=== PATIENT | female | born 2000 | race Caucasian/White ===

== ENCOUNTER 2024-11-05 13:19 | Emergency (ER) | payer OTHER, SELFPAY ==
--- NOTE | ~2024-11-05 | US_ITS ---
Limited ABDOMINAL ULTRASOUND (Doppler ultrasound interrogation techniques used as needed for this exa m.) Ordering provider: Daniel Vazquez PA-C History: . RUQ epigastric pain . Comparison: None. FINDINGS: PANCREAS: Normal echotexture and size. PORTAL VEIN: Hepatopedal flow demonstrated. LIVER: Normal size and echotexture. No focal hepatic lesions or perihepatic fluid collections are araceli ntified. BILIARY DUCTS: No intra or extrahepatic biliary dilation. Common bile duct measures 3.9 mm in diamete r which is normal for patient's age. GALLBLADDER: Cholelithiasis. No sludge, gallbladder wall thickening or pericholecystic fluid. Gallbla dder wall thickness is 2 mm. Negative sonographic Tyler's sign. Inferior vena cava: Patent. Abdominal aorta: Patent. FREE FLUID: None visualized within the upper abdomen. IMPRESSION: Cholelithiasis. Otherwise, normal limited abdominal ultrasound. Reviewed, dictated and finalized at location A.
[2024-11-05 13:21] VITALS: BP 127/83; PULSE 98; RESP 20; TEMP 36.3; O2SAT 98
--- NOTE | 2024-11-05 13:43 | PC.NURSE ---
patient given urine cup and advised we need a urine sample.
[2024-11-05 13:45] LABS: Basophils Percent Auto 0.1 % (0.2-1.2); Eosinophils Absolute Auto 0.1 K/mm3 (0-0.3); Eosinophils Percent Auto 1.5 % (0-4.4); Hematocrit 47.1 % (37.0-47.0); Hemoglobin 15.6 g/dL (12.0-15.0); Immature Granulocyte Absolute 0.02 K/mm3 (0.00-0.031); Immature Granulocyte Percent A 0.2 % (0-0.5); Lymphocytes Absolute Auto 3.29 K/mm3 (0.9-3.2); Lymphocytes Percent Auto 36.3 % (18.3-44.2); Mean Corpuscular HGB Conc 33.1 g/dl (32-36); Mean Corpuscular Volume 90.6 fl (80-100); Mean Platelet Volume 9.1 fl (7.4-10.4); Monocytes Absolute Auto 0.5 K/mm3 (0.1-0.6); Monocytes Percent Auto 5.1 % (2.6-8.5); Neutrophils Absolute Auto 5.1 K/mm3 (1.3-6.7); Neutrophils Percent Auto 56.8 % (45.5-73.1); Platelet Count Result 355 k/mm3 (150-375); Red Cell Distribution Width 12.2 % (11.5-14.5); White Blood Count 9.1 K/mm3 (4.5-10.0)
[2024-11-05 13:56] LABS: Alanine Aminotransferase 21 U/L (6-35); Albumin Level 4.6 g/dL (3.5-5.1); Alkaline Phosphatase 79 U/L (38-126); Anion Gap 12 mmol/L (4-12); Aspartate Amino Transferase 35 U/L (14-36); Bilirubin,Total 0.5 mg/dL (0.2-1.3); Blood Urea Nitrogen 14 mg/dL (7-17); Calcium 9.4 mg/dL (8.4-10.2); Carbon Dioxide 22 mmol/L (22-30); Chloride 102 mmol/L (98-107); Estimated CRCL calculation 100 ml/min; Estimated Glomerular Filt Rate > 60; Glucose 101 mg/dL (65-110); Lipase 64 U/L (23-300); Potassium 3.7 mmol/L (3.4-5.0); Sodium 136 mmol/L (137-145)
[2024-11-05 14:11] LABS: BEDSIDEPREGUCG Negative (Negative)
[2024-11-05 14:29] LABS: Add Urine Microscopic? YES; Appearance Urine Clear (Clear); Bacteria Urine None Seen /hpf; Bilirubin Urine Negative (Negative); Blood Urine Trace (Negative); Color Urine Yellow (Yellow); Glucose Urine UA Negative (Negative); Ketones Urine Negative (Negative); Leukocyte Esterase Ur Negative LEU/UL (Negative); Nitrate Urine Negative (Negative); Non Pathogenic Casts 0-2; Protein Urine Negative (Negative); Specific Grav Ur 1.022 (1.001-1.035); Squamous Epithelial Cell Urine None Seen /hpf (Few); WBC Urine 0-5 /hpf (0-3)
[2024-11-05 15:17] VITALS: BP 122/74; PULSE 72; RESP 18; O2SAT 100
--- OUTSIDE RECORDS SUMMARY | 2024-11-05 15:26 | XMS_ITS | Continuity of Care Document ---
Author Organization [facility] Address [address] [place] [address] Phone Care Team Providers Care Engine Emission Technician Name Role Phone Marcelino VARGAS MD, Simón Unavailable Unavailabl e Procedures Procedure Date EYE EXAM & TREATMENT EYE EXAM & TREATMENT REFRACTION Advance Directives Directive Yes / No Effective Date File Name No Information Encounters Encounter Description Practice Location Reason(s) For Visit Diagnoses Date Provider Providers Copied on Encounter [facility], [address] [place] [address], [id number] tel:[phone] [facility] Astigmatism, unspecifiedOcul ar torticollis 9 Marcelino Gr. [facility], [address] [place] [address], [id number]. tel:[phone] [facility], [address] [place] [address], [id number] tel:[phone] [facility] Astigmatism, unspecifiedExop horia 7 Marcelino Gr. [facility], [address] [place] [address], [id number]. tel:[phone] Family History Family Member Type Diagnosis Age At Onset No Information Payers Payer name Insurance type Covered republican ID Authoriza tion(s) No Information Social History Type Description Quantity Date Captured Comments Sex Female Smoking Status No Information Chief Complaint And Reason For Visit No Information Reason For Referral Reason For Referral No Information History Of Present Illness Encounter Date Complaint History Of Prese nt Illness No Information Functional Status Date Functional Assessmen t No Information Instructions Date Instruction Additional Infor mation No Information Assessments Type Assessment Date No Information Patient Care Teams Name Effective Dates (start - stop) Status Members No Information
--- OUTSIDE RECORDS SUMMARY | 2024-11-05 15:26 | XMS_ITS | Clinical Summary ---
Author Organization [facility] Address [address] [place] [address] Phone Care Team Providers Care Jukebox Operator Name Role Phone Vipul Esquivel MD PhD Primary Care Provider Allergies No known active allergies Medications Misc Natural Products (GLUCOSAMINE CHONDROITIN ADV PO) Take by mouth. Activ e Naproxen Sodium (ALEVE PO) Take by mouth. Acti ve Pseudoephedrine- APAP-DM (DAYQUIL PO) Take by mouth. Activ e fluticasone (FLONASE) 50 MCG/ACT Suspension 1-2 Sprays by Nasal route daily. Use in each nostril as directed. 1 Bottle 9 Active Additional Information Patient not taking.Reported on 06/12/2021 acetaminophen (TYLENOL) 325 MG Tablet Take 325 mg by mouth every 4 hours as needed. Active albuterol 108 (90 Base) MCG/ACT Aerosol Solution INHALE 2 PUFFS EVERY 4 HOURS NEEDED FOR WHEEZING 8.5 g 2 2 Active ibuprofen (Advil) 200 MG Tablet Take 400 mg by mouth every 8 hours as needed. Active guaiFENesin (MUCINEX PO) Take by mouth. Ac tive Active Problems Problem Noted Date Diagnosed Date Constipation Immunizations Immunization Administration Dates Next Due Covid-19 Vaccine, Vector-nr, Rs-ad26, Pf, 0.5 Ml ([employer]/J&J) 10/03/2020 DTAP VACCINE 02/09/2007, 3,2001,07/06,2001 Diptheria, Pertussis, And Tetanus 2002,2001,2001,05/04 HIB Vaccine (PRP-T) 06/03/2002, 2,2001,05/04 Hepatitis A Vaccine 02/01/2013 Hepatitis A Vaccine, Pediatric/adolescent, 2 Dose Schedule 01/01/2018 Hepatitis B Vaccine 06/03/2002,2001,2000 Human Papillomavirus (HPV) 9 -valent Vaccine 12/23/2023,06/11/2023,02/11/2023 Inactivated Polio Vaccine 02/09/2007,,2001,07/06,2001 Influenza Vaccine Nasal 04/13/2014,05/13/2013, Influenza Vaccine greater than 3 yrs 05/09/2011, 05/26/2008,05/16/2006 Influenza, Seasonal, Injecta ble, Undefined 05/09/2011,05/26/2008 MMR Vaccine 01/14/2020,02/09/2007,06/03/2002 Meningococcal Group B OMV 02/22/2021,01/14/2020 Meningococcal MCV4O 01/01/2018 Meningococcal Vaccine 02/01/2013 PUR FLU PRES FREE AGE 3+ FULL IM 05/09/2011,1112/2007 Pneumococcal Vaccine Peds 03/02/2002,,2001,05/04 TDAP Vaccine 12/23/2023,02/01/2013 Varicella Vaccine Live 02/09/2007,06/21/2002 Family History Medical History Relation Name Comments Allergies Brother seasonal Amblyopia Brother Diabetes Maternal Grandfather Hypertension Maternal Grandfather Allergies Mother seasonal Heart Disease Paternal Grandfather Hypertension Paternal Grandfather Anemia Neg Hx Asthma Neg Hx Bleeding Disorder Neg Hx Cancer Neg Hx Cystic Fibrosis Neg Hx Deafness Neg Hx Eczema Neg Hx Kidney Disease Neg Hx Scoliosis Neg Hx Seizures Neg Hx Sickle Cell Anemia Neg Hx Stroke Neg Hx Sudden Infant Syndrome Neg Hx Tuberculosis Neg Hx Relation Name Status Comments Brother Father Alive Maternal Grandfather Alive Maternal Grandmother Alive Mother Alive Paternal Grandfather Alive Paternal Grandmother Alive Social History Tobacco Use Types Packs/Day Years Used Date Smoking Tobacco: Never Passive Smoke Exposure: Never Smokeless Tobacco: Never Tobacco Cessation:Counseling Given: No Alcohol Use Standard Drinks/Week Comments Not Asked 0 (1 standard drink = 0.6 oz pur e alcohol) PHQ-2 Answer Date Recorded Total Score - Questions 1-9 0 12/20 Comments No Sex and Gender Information Value Date Recorded Sex Assigned at Not on file Legal Sex Female 3:03 AM GAMING DIRECTOR Gender Identity Not on file Sexual Orientation Not on file Last Filed Vital Signs Vital Sign Reading Time Taken Comments Blood Pressure 112/68 06/17/2023 11:35 AM GAMING DIRECTOR Pulse 90 06/17/2023 11:35 AM GAMING DIRECTOR Temperature 36.4 C (97.6 F) 06/17/2023 11:35 AM GAMING DIRECTOR Respiratory Rate 14 06/17/2023 11:35 AM GAMING DIRECTOR Oxygen Saturation 93% 06/12/2021 10:23 AM GAMING DIRECTOR Inhaled Oxygen Concentration - - Weight 60.4 kg (133 lb 3.2 oz) 06/17/2023 11:35 AM GAMING DIRECTOR Height 158 cm (5' 2.21 ) 06/17/2023 11:35 AM GAMING DIRECTOR Body Mass Index 24.2 06/17/2023 11:35 AM GAMING DIRECTOR Plan of Treatment Health Maintenance Due Date Last Done Comments Hepatitis C Virus (HCV) Screening 2001 Pap Smear 2022 Influenza Immunization (#1) 03/21/202403/22, 05/13/2013, 05/08/2012, Additional history exists SARS-COV-2 Immunization ( season) 2024 10/03/2020 DTaP/Tdap/Td Immunization (8 - Td or Tdap) 12/22/2033 12/23/2023, 02/01/2013, 02/09/2007, Additional history exists Respiratory Syncytial Virus (RSV) Immunization (Adult) (1 - 1-dose 75+ series) 2076 Pneumococcal Immunization Combined Aged Out 03/02/2002, 2001, 2001, Additional history exists No longer eligible based on patient's age to complete this topic Hepatitis B Immunization Completed 002, 2001, 2001 Polio (IPV) Immunization Discontinued 007, 10/14/2002, 2001, Additional history exists Varicella Immunization Discontinued 02/09/2007, 2001 Hepatitis A Immunization Discontinued 01/01/2018, 01/18 Meningococcal Immunization (ACWY) Completed 01/01/2018, 02/01/2013 Measles Mumps Rubella (MMR) Immunization Discontinued 01/14/2020, 02/09/2007, 06/03/2002 Meningococcal B Immunization Completed 02/22/2021, 01/14/2020 Human Papillomavirus (HPV) Immunization Completed 12/23/2023, 06/11/2023, 02/11/2023 Rotavirus Immunization Aged Out No lo nger eligible based on patient's age to complete this topic Insurance [facility] Care Teams Jukebox Operator Relationship Specialty Start Date End Date Vipul Esquivel MD PhD [id number] [id number] PCP - General Pediatrics 03/20/15
--- NOTE | 2024-11-05 15:50 | ED_ITS ---
HPI - Abdominal Pain General Chief Complaint: Abdominal Pain <CEE Pena Last Filed: 11/05/24 18:44> Stated Complaint: epigastric pain <CEE Pena Last Filed: 11/05/24 18:44> Time Seen by Provider: 11/05/24 14:58 <Daniel Vazquez PA-C - Last Filed: 11/05/24 18:44> Source: patient <CEE Pena Last Filed: 11/05/24 18:44> Mode of arrival: ambulatory <CEE Pena Last Filed: 11/05/24 18:44> Limitations: no limitations <Daniel Vazquez PA-C - Last Filed: 11/05/24 18:44> History of Present Illness HPI narrative: This is a 24-year-old female who presents to the ED for chief complaint of upper abdominal pain beginning around 12 30. Patient states that she has had this epigastric pain in the past and usually only last for about half an hour. States she has taken Advil for this in the past with decent relief. Today as she continued to have pain despite taking Advil. States the pain radiates somewhat to the left side of the abdomen as well as the left side of the chest. States that she had eaten breakfast earlier today but did not have any issues after eating. Does not use a lot of spicy food. Endorses some nausea but no vomiting. Denies fevers, chills, changes in bowel movements, GI bleeding symptoms, shortness of breath, back pain. <Daniel Vazquez PA-C - Last Filed: 11/05/24 18:44> Related Data Allergies/Adverse Reactions: Allergies Allergy/AdvReac Type Severity Reaction Status Date / Time No Known Allergies Allergy Verified 11/05/24 13:21 <Daniel Vazquez PA-C - Last Filed: 11/05/24 18:44> Review of Systems 2 Review of Systems: All systems as dictated in HPI <CEE Pena Last Filed: 11/05/24 18:44> Exam 2 Narrative: GENERAL: Well-appearing, well-nourished, and in no acute distress. HEAD: Normocephalic, atraumatic. EYES: PERRLA and EOMI. ENT: Nares clear, no rhinorrhea or epistaxis. Mucous membranes moist. Oropharynx without tonsillar hypertrophy exudate or other lesions. NECK: Supple. No adenopathy or masses. CHEST: No respiratory distress. Clear to auscultation. No wheezes rales or rhonchi HEART: Regular rate and rhythm. No murmur heard. Normal peripheral pulses. ABDOMEN: Soft, nontender, nondistended, normal active bowel sounds. MSK: Normal range of motion. No edema. SKIN: Warm, dry, no rash. NEURO: Alert and oriented x4. No focal deficits. PSYCH: Normal mood and affect. <Daniel Vazquez PA-C - Last Filed: 11/05/24 18:44> Course SUPERVISOR PLASTERING/PA Physician Supervision agree with notes and management <Noe Mckeon MD - Last Filed: 11/05/24 18:42> Vital Signs Vital signs: Vital Signs Temperature 97.3 F L 11/05/24 13:21 Pulse Rate 98 11/05/24 13:21 Respiratory Rate 20 11/05/24 13:21 Blood Pressure 127/83 11/05/24 13:21 Pulse Oximetry 98 11/05/24 13:21 Oxygen Delivery Room Air 11/05/24 13:21 Temperature 97.3 F L 11/05/24 13:21 Pulse Rate 72 11/05/24 15:17 Respiratory Rate 18 11/05/24 15:17 Blood Pressure 122/74 11/05/24 15:17 Pulse Oximetry 100 11/05/24 15:17 Oxygen Delivery Room Air 11/05/24 13:21 <Daniel Vazquez PA-C - Last Filed: 11/05/24 18:44> Vital Signs Temperature 97.3 F L 11/05/24 13:21 Pulse Rate 98 11/05/24 13:21 Respiratory Rate 20 11/05/24 13:21 Blood Pressure 127/83 11/05/24 13:21 Pulse Oximetry 98 11/05/24 13:21 Oxygen Delivery Room Air 11/05/24 13:21 Temperature 97.3 F L 11/05/24 13:21 Pulse Rate 72 11/05/24 15:17 Respiratory Rate 18 11/05/24 15:17 Blood Pressure 122/74 11/05/24 15:17 Pulse Oximetry 100 11/05/24 15:17 Oxygen Delivery Room Air 11/05/24 13:21 <Noe Mckeon MD - Last Filed: 11/05/24 18:42> MDM - Abdominal Pain MDM Narrative Medical decision making narrative: This is a 24-year-old female who presents to the ED for chief complaint of upper abdominal pain beginning earlier today. Vitals are normal. Exam remarkable for epigastric tenderness. Lab work is unremarkable overall. Right upper quadrant ultrasound does show cholelithiasis but no evidence of acute cholecystitis. Presentation is most likely consistent with gastritis. She was given Pepcid, GI cocktail, Zofran here with good relief symptoms. She is currently asymptomatic. Rx for omeprazole given. Patient will be discharged in stable condition. Supportive measures discussed and return precautions given. Patient is understanding and agreeable with plan for discharge with PCP follow-up. <Daniel Vazquez PA-C - Last Filed: 11/05/24 18:44> Lab Data Result diagrams: 11/05/24 13:34 11/05/24 13:34 <Daniel Vazquez PA-C - Last Filed: 11/05/24 18:44> Labs: Lab Results 11/05/24 11/05/24 11/05/24 Range/Units 13:34 14:07 14:10 WBC 9.1 (4.5-10.0) K/mm3 RBC 5.20 (4.2-5.4) M/mm3 Hgb 15.6 H (12.0-15.0) g/dL Hct 47.1 H (37.0-47.0) % MCV 90.6 (80-100) fl MCH 30.0 (26-34) pg MCHC 33.1 (32-36) g/dl RDW 12.2 (11.5-14.5) % Plt Count 355 (150-375) k/mm3 MPV 9.1 (7.4-10.4) fl Immature Gran % (Auto) 0.2 (0-0.5) % Neut % (Auto) 56.8 (45.5-73.1) % Lymph % (Auto) 36.3 (18.3-44.2) % [place] % (Auto) 5.1 (2.6-8.5) % Eos % (Auto) 1.5 (0-4.4) % Baso % (Auto) 0.1 L (0.2-1.2) % Lymph # (Auto) 3.29 H (0.9-3.2) K/mm3 [place] # (Auto) 0.5 (0.1-0.6) K/mm3 Eos # (Auto) 0.1 (0-0.3) K/mm3 Baso # (Auto) 0.0 (0.0-0.1) K/mm3 Abs Immat Gran (auto) 0.02 (0.00-0.031) K/mm3 Absolute Neuts (auto) 5.1 (1.3-6.7) K/mm3 Absolute Nucleated RBC 0.000 (0.0-0.012) K/mm3 Nucleated RBC % 0.0 (0.0-0.2) % Sodium 136 L (137-145) mmol/L Potassium 3.7 (3.4-5.0) mmol/L Chloride 102 (98-107) mmol/L Carbon Dioxide 22 (22-30) mmol/L Anion Gap 12 (4-12) mmol/L BUN 14 (7-17) mg/dL Creatinine 0.85 (0.7-1.0) mg/dL Estim Creat Clear Calc 100 ml/min Estimated GFR > 60 (59 - ) Glucose 101 (65-110) mg/dL Calcium 9.4 (8.4-10.2) mg/dL Total Bilirubin 0.5 (0.2-1.3) mg/dL AST 35 (14-36) U/L ALT 21 (6-35) U/L Alkaline Phosphatase 79 (38-126) U/L Total Protein 8.0 (6.3-8.2) g/dL Albumin 4.6 (3.5-5.1) g/dL Lipase 64 (23-300) U/L Urine Color Yellow (Yellow) Urine Appearance Clear (Clear) Urine pH 6.0 (5.0-9.0) Ur Specific Grant 1.022 (1.001-1.035) Urine Protein Negative (Negative) mg/dL Urine Glucose (UA) Negative (Negative) mg/dL Urine Ketones Negative (Negative) mg/dL Ur Blood (Man) Trace (Negative) Urine Nitrate Negative (Negative) Urine Bilirubin Negative (Negative) Urine Urobilinogen 1.0 (<2.0) mg/dL Leukocyte Esterase Rfl Negative (Negative) DANIS/UL Urine RBC 3-5 H (0-2) /hpf Urine WBC 0-5 (0-3) /hpf Ur Squamous Epith Cells None seen (Few) /hpf Urine Bacteria None seen /hpf Urine Casts 0-2 POC Urine HCG, Qual Negative (Negative) <Daniel Vazquez PA-C - Last Filed: 11/05/24 18:44> Lab Results 11/05/24 11/05/24 11/05/24 Range/Units 13:34 14:07 14:10 WBC 9.1 (4.5-10.0) K/mm3 RBC 5.20 (4.2-5.4) M/mm3 Hgb 15.6 H (12.0-15.0) g/dL Hct 47.1 H (37.0-47.0) % MCV 90.6 (80-100) fl MCH 30.0 (26-34) pg MCHC 33.1 (32-36) g/dl RDW 12.2 (11.5-14.5) % Plt Count 355 (150-375) k/mm3 MPV 9.1 (7.4-10.4) fl Immature Gran % (Auto) 0.2 (0-0.5) % Neut % (Auto) 56.8 (45.5-73.1) % Lymph % (Auto) 36.3 (18.3-44.2) % [place] % (Auto) 5.1 (2.6-8.5) % Eos % (Auto) 1.5 (0-4.4) % Baso % (Auto) 0.1 L (0.2-1.2) % Lymph # (Auto) 3.29 H (0.9-3.2) K/mm3 [place] # (Auto) 0.5 (0.1-0.6) K/mm3 Eos # (Auto) 0.1 (0-0.3) K/mm3 Baso # (Auto) 0.0 (0.0-0.1) K/mm3 Abs Immat Gran (auto) 0.02 (0.00-0.031) K/mm3 Absolute Neuts (auto) 5.1 (1.3-6.7) K/mm3 Absolute Nucleated RBC 0.000 (0.0-0.012) K/mm3 Nucleated RBC % 0.0 (0.0-0.2) % Sodium 136 L (137-145) mmol/L Potassium 3.7 (3.4-5.0) mmol/L Chloride 102 (98-107) mmol/L Carbon Dioxide 22 (22-30) mmol/L Anion Gap 12 (4-12) mmol/L BUN 14 (7-17) mg/dL Creatinine 0.85 (0.7-1.0) mg/dL Estim Creat Clear Calc 100 ml/min Estimated GFR > 60 (59 - ) Glucose 101 (65-110) mg/dL Calcium 9.4 (8.4-10.2) mg/dL Total Bilirubin 0.5 (0.2-1.3) mg/dL AST 35 (14-36) U/L ALT 21 (6-35) U/L Alkaline Phosphatase 79 (38-126) U/L Total Protein 8.0 (6.3-8.2) g/dL Albumin 4.6 (3.5-5.1) g/dL Lipase 64 (23-300) U/L Urine Color Yellow (Yellow) Urine Appearance Clear (Clear) Urine pH 6.0 (5.0-9.0) Ur Specific Grant 1.022 (1.001-1.035) Urine Protein Negative (Negative) mg/dL Urine Glucose (UA) Negative (Negative) mg/dL Urine Ketones Negative (Negative) mg/dL Ur Blood (Man) Trace (Negative) Urine Nitrate Negative (Negative) Urine Bilirubin Negative (Negative) Urine Urobilinogen 1.0 (<2.0) mg/dL Leukocyte Esterase Rfl Negative (Negative) DANIS/UL Urine RBC 3-5 H (0-2) /hpf Urine WBC 0-5 (0-3) /hpf Ur Squamous Epith Cells None seen (Few) /hpf Urine Bacteria None seen /hpf Urine Casts 0-2 POC Urine HCG, Qual Negative (Negative) <Noe Mckeon MD - Last Filed: 11/05/24 18:42> Imaging Data Radiologist's impression: ITS Impressions Abdomen Ultrasound 11/05/24 16:55 IMPRESSION: Cholelithiasis. Otherwise, normal limited abdominal ultrasound. <Daniel Vazquez PA-C - Last Filed: 11/05/24 18:44> ITS Impressions Abdomen Ultrasound 11/05/24 16:55 IMPRESSION: Cholelithiasis. Otherwise, normal limited abdominal ultrasound. <Noe Mckeon MD - Last Filed: 11/05/24 18:42> Discharge Plan Discharge Clinical Impression: Gastritis <Daniel Vazquez PA-C - Last Filed: 11/05/24 18:44> Patient Disposition: Home <Daniel Vazquez PA-C - Last Filed: 11/05/24 18:44> Condition: Stable <Daniel Vazquez PA-C - Last Filed: 11/05/24 18:44> Instructions: Antibiotic Form, Gastritis (ED) <Daniel Vazquez PA-C - Last Filed: 11/05/24 18:44> Additional Instructions: Exam today is most likely showing gastritis. Please take omeprazole daily. Avoid spicy or acidic foods. Use Tylenol for pain control. Advil or other NSAIDs may make the pain worse. Follow-up with PCP on this issue. If you have any new or worsening symptoms please return to the ER for further evaluation. <Daniel Vazquez PA-C - Last Filed: 11/05/24 18:44> Patient Language: Turkish <Daniel Vazquez PA-C - Last Filed: 11/05/24 18:44> Prescriptions: New omeprazole 20 mg capsule,delayed release(DR/EC) 20 mg PO DAILY Qty: 30 0RF <Daniel Vazquez PA-C - Last Filed: 11/05/24 18:44> Follow-up/Referrals: UNKNOWN,DOCTOR [Primary Care Provider] - <Daniel Vazquez PA-C - Last Filed: 11/05/24 18:44> Time of Disposition: 18:01 <Daniel Vazquez PA-C - Last Filed: 11/05/24 18:44> 18:01 <Noe Mckeon MD - Last Filed: 11/05/24 18:42>
--- NOTE | 2024-11-05 15:51 | ECG_ITS ---
Test Date: 2024-11-05 16:50:19 Measurements Intervals [place] Rate: 62 P: 62 WI: 159 QRS: 77 QRSD: 80 T: 52 QT: 413 QTc: 422 Interpretive Statements SINUS RHYTHM RSR' IN V1 OR V2, PROBABLY NORMAL VARIANT MINIMAL Q WAVES- INF/LAT LEADS BORDERLINE T WAVE ABNORMALITY- ANTERIOR LEADS BORDERLINE ECG No previous ECG available for comparison Electronically Signed On 11-05-2024 20:32:25 CDT by Boni Perales D.O.
--- NOTE | 2024-11-05 16:35 | PC.NURSE ---
patient in ultrasound at this time
[2024-11-05] MEDS: FAMOTIDINE 20 MG TABLET PO (17:01)
[2024-11-05] MEDS: ONDANSETRON HCL ODT 4 MG TABLET PO (17:01)
[2024-11-05] MEDS: BELLADONNA ALK/PHENOB ELIX 10 ML, MAG HYDROX/ALUMINUM HYD/SIMETH 30 ML, LIDOCAINE 2% VI... PO (17:02)
== END 2024-11-05 18:39 | disposition home or self-care (01) ==
PROVIDERS: Emergency Medicine; Emergency Provider Physician Assistant
DX: K29.70 Gastritis, unspecified, without bleeding (principal); K80.20 Calculus of gallbladder without cholecystitis without obstruction; R94.31 Abnormal electrocardiogram [ECG] [EKG]
CPT/HCPCS: 36415; 76705; 80053; 81001; 81025; 83690; 85025; 93005; 99284; A9270